=== PATIENT | female | born 1965 | race Caucasian/White ===

== ENCOUNTER 2021-11-29 15:37 | Emergency (ER) | payer BC, OTHER ==
[~2021-11-29] VITALS: Ht 162.6 cm; Wt 69.0 kg
[~2021-11-29 15:37] MED LIST: ETOMIDATE 2MG/ML 10ML VIAL IV ONE; SUCCINYLCHOLINE CHLORIDE 200MG/10ML IV ONE
[2021-11-29] MEDS: VANCOMYCIN 1G PREMIX 200 ML IV ONE ×2 (16:15)
[2021-11-29] MEDS: PIPERACILLIN/TAZ 3.375G PREMIX 50 ML IV ONE ×2 (16:15)
[2021-11-29] MEDS: SODIUM CHLORIDE 0.9% 1000ML BAG (SEPSIS BOLUS) IV ONE ×2 (16:15)
[2021-11-29 16:44] LABS: HEMATOCRIT. 42.9 % (36.0-48.0); MEAN CORPUSCULAR HEMOGLOBIN 29.5 pg (28.0-32.0); MEAN CORPUSCULAR VOLUME 90.3 fL (81.0-99.0); MEAN PLATELET VOLUME 8.4 fl (7.4-10.4); PLATELET 376 x1000/uL (130-400); RED BLOOD CELL COUNT 4.76 mill/uL (4.2-5.4); RED CELL DISTRIBUTION WIDTH 14.2 % (11.6-14.6)
[2021-11-29 16:57] LABS: D-DIMER 17.4 mg/L FEU (<0.50); PROTHROMBIN TIME 10.5 sec (9.6-11.0)
[2021-11-29 16:57] LABS: CLARITY URINE CLOUDY (CLEAR); COLOR URINE YELLOW (YELLOW); KETONES URINE 1+ (NEGATIVE); LEUKOCYTE ESTERASE URINE NEGATIVE (NEGATIVE); NITRITE URINE NEGATIVE (NEGATIVE); OCCULT BLOOD URINE 2+ (NEGATIVE); PH URINE 5.5 (4.5-8.0); PROTEIN URINE 1+ (NEGATIVE); SPECIFIC GRAVITY URINE 1.024 (1.005-1.030)
[2021-11-29 17:11] LABS: *AMPHETAMINES SCREEN URINE PRESUMTIVE POSITIVE (NEGATIVE); *BARBITURATES SCREEN URINE NEGATIVE (NEGATIVE); *BENZODIAZEPINES SCREEN URINE NEGATIVE (NEGATIVE); *COCAINE SCREEN URINE NEGATIVE (NEGATIVE); CANNABINOID URINE SCREEN NEGATIVE (NEGATIVE); METHADONE URINE SCREEN NEGATIVE (NEGATIVE); OPIATES URINE SCREEN NEGATIVE (NEGATIVE); PHENCYCLIDINE URINE SCREEN NEGATIVE (NEGATIVE)
[2021-11-29 17:11] LABS: BG BASE EXCESS 1.2 mmol/L (-2.0-2.0); BG CARBOXYHEMOGLOBIN 0.4 % (0.5-1.5); BG DEOXYHEMOGLOBIN 0.5 % (0.0-5.0); BG FRACTION INSPIRED OXYGEN 100; BG HCO3 ACT 25.8 mmol/L (22.0-26.0); BG METHEMOGLOBIN 0.4 % (0.0-1.5); BG OXYGEN SATURATION 99.5 % (92.0-98.5); BG OXYHEMOGLOBIN 98.7 % (94.0-97.0); BG PCO2 41.2 mmHg (35.0-45.0); BG PH 7.415 (7.350-7.450); BG PO2 433.9 mmHg (75.0-100.0); BG SAMPLE SITE RIGHT RADIAL; BG TOTAL HEMOGLOBIN 14.9 g/dL (12.0-18.0); BG VENT MODE VENT - AC
[2021-11-29 17:11] LABS: CHLORIDE 102 mEq/L (98-107)
[2021-11-29 17:15] LABS: PLATELET ESTIMATE NORMAL
[2021-11-29 17:18] LABS: C REACTIVE PROTEIN QUANT 3.8 mg/L (0.0-3.0); CREATINE KINASE 151 IU/L (26-192); ETHANOL BLOOD < 10 mg/dL
[2021-11-29] MEDS: SUCCINYLCHOLINE CHLORIDE 200MG/10ML IV ONE (17:27)
[2021-11-29] MEDS ORDERED: MANNITOL 20% (20GM/100ML) BAG 500ML PREMIX IV ONE (17:30)
[2021-11-29] MEDS: NIMODIPINE 30MG CAPSULE PO ONE (17:32)
[2021-11-29] MEDS: LEVETIRACETAM 500MG PREMIX 100 ML IV ONE (17:33)
[2021-11-29] MEDS: ONDANSETRON HCL 4MG/2ML INJ IV ONE (17:33)
[2021-11-29] MEDS ORDERED: MANNITOL 20% 500 ML IV SCH (17:45)
[2021-11-29] MEDS: DEXAMETHASONE 10 MG/ML VIAL IV SCH (17:46)
[2021-11-29] MEDS: MANNITOL 20% 100 ML IV SCH (17:58)
[2021-11-29] MEDS: PROPOFOL 10MG/ML 100ML 100 ML IV NR (19:23)
[2021-11-29 20:10] VITALS: BP 150/65
[2021-11-29] MEDS ORDERED: IOHEXOL-350 100 ML BOTTLE ONE (22:54)
== END 2021-11-29 20:25 | disposition short-term general hospital (02) ==
LOC: ER 15:37
DX: I60.4 Nontraumatic subarachnoid hemorrhage from basilar artery (principal); I61.8 Other nontraumatic intracerebral hemorrhage; E11.9 Type 2 diabetes mellitus without complications; F15.10 Other stimulant abuse, uncomplicated; F12.10 Cannabis abuse, uncomplicated; K86.1 Other chronic pancreatitis; R06.03 Acute respiratory distress; Z20.822 Contact with and (suspected) exposure to COVID-19
CPT/HCPCS: 31500; 36415; 36600; 70450; 70496; 70498; 71045; 74176; 80053; 80305; 80320; 81003; 82375; 82550; 82805; 83605; 83615; 83690; 83880; 84145; 84484; 85025; 85379; 85384; 85610; 86140; 86850; 86900; 86901; 87040; 87077; 87086; 87186; 87426; 93005; 96365; 96367; 96368; 96375; 99291; J0330; J1100; J1953; J2405; J2543; J2704; J3370; J3490; J7030; Q9967; Z7610; 94002; G0480